=== PATIENT | male | born 1980 ===

== ENCOUNTER 2022-08-16 09:10 | Outpatient (CLI) | payer BC, SELFPAY ==
--- NOTE | 2022-08-16 09:29 | XR_ITS ---
WS: [id number] KUB, AP view, 08/16/2022 Clinical Data: STONE Comparison: None. Findings: No abnormal intraabdominal masses or calcifications are seen. There is no dilatated small bowel or ev idence of obstruction. There are no calcifications in the true pelvis. There is a moderate amount of fecal material in the c olon. XR/XR KUB [id number] Impression: Negative KUB.
== END 2022-08-16 09:11 | disposition home or self-care (01) ==
PROVIDERS: PCP Family Medicine; Visit Provider Nurse Practitioner Family
DX: R39.9 Unspecified symptoms and signs involving the genitourinary system (principal)
CPT/HCPCS: 74018; 81003

== ENCOUNTER 2022-08-30 12:06 | Outpatient (CLI) | payer BC, SELFPAY ==
--- NOTE | 2022-08-30 11:45 | CT_ITS ---
WS: [id number] CT ABDOMEN AND PELVIS NONCONTRAST HISTORY: Left flank pain TECHNIQUE: Imaging performed through the abdomen and pelvis. Coronal and sagittal reformats are submi tted. All CT scans at [facility] use at least one of these dose optimization techniques: auto mated exposure control; mA and/or kV adjustment per patient size (includes targeted exams where dose is matched to clinical indication); or iterative reconstruction. DLP: 1114.93 mGy.cm COMPARISON: None available. Lower thorax: Lung bases are clear. Visualized heart is normal. No hiatal hernia. Liver: Normal size liver. No mass or bile duct dilatation. Gallbladder: Mildly contracted. No adjacent inflammation. No bile duct dilatation. Pancreas: Normal size and attenuation. Normal pancreatic duct. No pancreatitis or mass. Spleen: Normal. Adrenal glands: Normal. No mass. Right kidney: Normal size kidney with no mass or hydronephrosis. Left kidney: Normal size kidney with no mass or hydronephrosis. Aorta: Normal abdominal aorta, no aneurysm or atherosclerosis. No free fluid, intraperitoneal air or significant lymphadenopathy. GI tract: Normal appendix. No GI tract obstruction or diverticulosis. Abdominal wall: Small umbilical hernia contains fat only. Pelvis: Normal. Osseous structures: Bilateral pars defects at L5. CT/CT abdomen pelvis wo con [id number] IMPRESSION: 1. No renal or ureteral obstruction. No calcifications identified. 2. Normal appendix. 3. No ascites. 4. No diverticulitis.
== END 2022-08-30 12:07 | disposition home or self-care (01) ==
LOC: RAD 12:06
PROVIDERS: PCP Family Medicine; Visit Provider Nurse Practitioner Family
DX: R10.9 Unspecified abdominal pain (principal)
CPT/HCPCS: 74176

== ENCOUNTER → 2025-07-27 15:47 | Outpatient (BNVA) | payer BC, SELFPAY | PROVIDERS: PCP Family Medicine; Referring Provider Family Medicine; Visit Provider Internal Medicine Cardiovascular Disease | DX: R07.89 Other chest pain (principal) | CPT/HCPCS: 93005 ==

== ENCOUNTER 2025-08-21 11:30 | Outpatient (CLI) | payer BC, SELFPAY ==
--- NOTE | 2025-08-21 | ECG_ITS ---
[facility]25[facility]21 Pat Name: Ajit Mckeon Department: Room: Gender: Male Account Development Associate: : 1980 Requested By: Destiny Sanderson Order Number: [id number] Conterras MD: Mike Graves M.D. Interpretive Statements Endings: The patient's baseline blood pressure was 115/81 with a heart rate of 72 bpm. The patient exercised for total of 7 minutes and 37 seconds on the treadmill using the Sudeep protocol. The patient reached a maximum heart rate of 177 which is 101% of the patient's maximal predicted heart rate. The patient achieved 10.2 METS. The maximum blood pressure was 199/81 mmHg. The baseline EKG showed normal sinus rhythm with no ST or T wave abnormalities. No ST or T wave changes occurred with the stress test. There were rare premature ventricular beats during recovery. CONCLUSION: 1. Exercise capacity was average for age. 2. Heart rate response was appropriate. 3. Blood pressure response was appropriate. 4. No symptoms of angina during exercise. 5. Electrocardiogram portion of the stress test without evidence of ischemia. 6. Rare premature ventricular beats in recovery. Electronically Signed On 08-21-2025 13:42:14 [employer] by Mike Graves M.D. [email or web address]
[2025-08-21 11:58] VITALS: BMI 29.0
[2025-08-21 12:13] VITALS: BP 139/78; PULSE 95
== END 2025-08-21 11:31 | disposition home or self-care (01) ==
LOC: CDL 11:39
PROVIDERS: PCP Family Medicine; Visit Provider Internal Medicine Cardiovascular Disease
DX: R07.9 Chest pain, unspecified (principal); R06.02 Shortness of breath
CPT/HCPCS: 93017